=== PATIENT | female | born 1990 | race Caucasian/White ===

== ENCOUNTER → 2018-04-11 16:46 | Outpatient (REF) | payer SELFPAY ==
[2018-04-14 20:01] LABS: Neisseria gonorrhoeae, NAA Negative (Negative)
== END ==
LOC: LAB 16:46
PROVIDERS: Visit Provider Nurse Practitioner Obstetrics & Gynecology
DX: N92.0 Excessive and frequent menstruation with regular cycle (principal); N94.10 Unspecified dyspareunia; N85.2 Hypertrophy of uterus; Z72.51 High risk heterosexual behavior; R10.2 Pelvic and perineal pain; N93.9 Abnormal uterine and vaginal bleeding, unspecified
CPT/HCPCS: 87491; 87591

== ENCOUNTER → 2018-06-28 10:40 | Outpatient (CLI) | payer SELFPAY ==
--- NOTE | 2018-06-28 10:44 | US_ITS ---
US transvaginal HISTORY: Pelvic pain, painful intercourse ITS.REASON: T/V US ORDERING PHYSICIAN: Calderon Ford MD PATIENT AGE: 27 years Comparison: None FINDINGS: The uterus is retroverted measuring 8 x 4.5 x 4.4 cm with a combined endometrial thickness of 8 mm. Nabothian cyst is present. No uterine mass evident. The left ovary is 4.3 x 1.8 cm and contains multiple small follicles.. The right ovary is 4.6 x 2.6 cm and contains a 1.6 cm cyst along with other smaller follicles There is a small amount fluid in the cul-de-sac. IMPRESSION: 1. Polycystic appearance of the ovaries. 2. Retroverted uterus. 3. Small amount of fluid in the cul-de-sac
== END ==
PROVIDERS: Visit Provider Nurse Practitioner Obstetrics & Gynecology
DX: N85.2 Hypertrophy of uterus (principal); N92.0 Excessive and frequent menstruation with regular cycle; N94.10 Unspecified dyspareunia
CPT/HCPCS: 76830

== ENCOUNTER → 2018-07-20 09:18 | Outpatient (CLI) | payer SELFPAY ==
[2018-07-20 10:02] LABS: Basophils # 0.1 K/mm3 (0-0.2); Basophils % 0.8 % (0.1-2.0); Eosinophils # 0.3 K/mm3 (0.0-0.4); Eosinophils % 3.6 % (0.1-12.0); Hematocrit 45.9 % (37.0-47.0); Hemoglobin 14.8 g/dL (12.2-16.2); Lymphocytes # 2.1 K/mm3 (0.7-4.5); Lymphocytes % 24.9 K/mm3 (10-50); Mean Corpuscular HGB Conc 32.3 g/dL (31.8-35.4); Monocytes # 0.3 K/mm3 (0.1-1.0); Monocytes % 3.7 % (1.7-9.3); Neutrophils # 5.7 K/mm3 (1.8-7.8); Neutrophils % 66.9 % (37.0-80.0); Platelet Count 234 K/mm3 (142-424); Red Blood Count 4.78 M/mm3 (4.20-5.40); Red Cell Distribution Width 13.3 % (11.5-17.5); White Blood Count 8.6 K/mm3 (4.8-10.8)
[2018-07-20 11:32] LABS: Anion Gap 11.7 mEq/L (5-15); Blood Urea Nitrogen 26 mg/dL (7-18); Calcium 9.3 mg/dL (8.5-10.1); Carbon Dioxide 28 mmol/L (21.0-32.0); Chloride 107 mmol/L (98-107); Creatinine,Serum 0.71 mg/dL (0.55-1.02); Estimated Glomerular Filt Rate 99 ml/min (>60); GFR (African American) 119 ML/MIN (>60); Glucose 71 mg/dL (74-106); Potassium 4.7 mmoL/L (3.5-5.1); Sodium 142 mmol/L (136-145)
[2018-07-20 13:32] LABS: HCG Qualitative, Serum Negative (Negative)
== END ==
PROVIDERS: Visit Provider Nurse Practitioner Obstetrics & Gynecology
DX: Z01.818 Encounter for other preprocedural examination (principal); R10.2 Pelvic and perineal pain
CPT/HCPCS: 36415; 80048; 84703; 85025

== ENCOUNTER → 2020-05-20 17:32 | Outpatient (CLI) | payer OTHER, SELFPAY | PROVIDERS: Visit Provider Nurse Practitioner Obstetrics & Gynecology | DX: Z01.419 Encounter for gynecological examination (general) (routine) without abnormal findings (principal); N39.0 Urinary tract infection, site not specified; R10.2 Pelvic and perineal pain | CPT/HCPCS: 87086; 87088; 87186 ==

== ENCOUNTER → 2020-05-26 09:08 | Outpatient (CLI) | payer OTHER, SELFPAY ==
--- NOTE | 2020-05-26 09:09 | US_ITS ---
PROCEDURE: US TRANSVAGINAL CLINICAL INDICATION: ovarian cyst COMPARISON: TRANVAG US transvaginal from 06/28/2018 FINDINGS: UTERUS: 7cm x 5cmx 4cm with a combined endometrial thickness of 10.3mm LEFT OVARY: [id number] with a volume of 11.9ml. RIGHT OVARY: [id number] with a volume of 16ml. The uterus is retroverted. Endometrial thickness is upper normal at 10 mm. There are multiple bilateral ovarian follicles. Dominant follicle on the right is present at 1.9 cm. There is bilateral ovarian blood flow. No cul-de-sac fluid apparent IMPRESSION: Bilateral ovarian follicles with retroverted uterus with a 1.9 cm right ovarian cyst Dictated by: Parmjit Ortega MD 05/26/2020 17:45 Electronically signed by Parmjit Ortega MD in [facility] 05/26/2020 17:45
== END ==
PROVIDERS: PCP Pediatrics; Visit Provider Nurse Practitioner Obstetrics & Gynecology
DX: N83.209 Unspecified ovarian cyst, unspecified side (principal)
CPT/HCPCS: 76830